=== PATIENT | female | born 1960 | race Caucasian/White ===

== ENCOUNTER 2016-10-06 12:49 | Emergency (ER) | payer OTHER ==
[~2016-10-06] VITALS: Ht 152.4 cm; Wt 88.0 kg
--- NOTE | 2016-10-06 13:20 | ED CARDIAC/CP/PALPITATIONS ---
History of Present Illness General Chief Complaint: Chest Pain Stated Complaint: CP WITH LEFT FLANK PAIN, LIGHTHEADED Source: patient Exam Limitations: no limitations Vital Signs & Intake/Output Vital Signs & Intake/Output Vital Signs Date Time Temp Pulse Resp B/P Pulse O2 O2 Flow FiO2 Ox Delivery Rate 10/06 1907 97.8 72 18 156/77 98 Room Air 10/06 1513 97.6 74 18 144/75 95 Room Air 10/06 1259 97.8 90 16 176/94 96 Room Air Allergies Coded Allergies: No Known Allergies (10/06/16) Reconcile Medications Atorvastatin Calcium 20 MG TABLET 1 TAB PO DAILY CHOLESTEROL (Reported) Fluticasone Furoate (Arnuity Ellipta) 100 MCG BLST.W.DEV 1 PUFF PO DAILY BREATHING PROBLEMS (Reported) Fluticasone Propionate (Flonase Allergy Relief) 50 MCG/ACTUATION SPRAY.SUSP 1 SPRAY SABAS DAILY ALLERGIES (Reported) Lansoprazole 30 MG CAPSULE.DR 1 CAP PO DAILY GI (Reported) Multivitamin (Daily Multiple Vitamin) 1 EACH TABLET 1 TAB PO DAILY SUPPLEMENT (Reported) Triage Note: PT STATES THAT SHE HAS HAD A PAIN UNDER HER L BREAST THAT RADIATES INTO HER BACK FOR THE PAST 2 HOURS. Triage Nurses Notes Reviewed? yes Onset: Abrupt Duration: hour(s): (2) Timing: recent history Quality/Severity: mild, tightness Radiation: shoulders, back Activities at Onset: none HPI: 55-year-old female with a history of hyperlipidemia comes into emergency room with complaints of left-sided rib/chest pain that began around 11 AM this morning. Patient reports that she was hung over this morning from drinking alcohol last night. Denies any shortness of breath. Some associated nausea and stomach upset. Denies any prior history of coronary disease or prior myocardial infarction. Nothing seems to make the symptoms better or worse. Pain is not severe or tearing. (KENDRA WALSH) Past History Travel History Traveled to [place] past 21 day No Medical History Any Pertinent Medical History? 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 No (KENDRA WALSH) Review of Systems Review of Systems Constitutional: Reports: no symptoms. EENTM: Reports: no symptoms. Respiratory: Reports: no symptoms. Cardiovascular: Reports: see HPI. GI: Reports: see HPI. Genitourinary: Reports: no symptoms. Musculoskeletal: Reports: see HPI. Skin: Reports: no symptoms. Neurological/Psychological: Reports: no symptoms. Hematologic/Endocrine: Reports: no symptoms. Immunologic/Allergic: Reports: no symptoms. All Other Systems: Reviewed and Negative (KENDRA WALSH) Physical Exam Physical Exam General Appearance: well developed/nourished, no apparent distress, alert Head: atraumatic, normal appearance Eyes: Bilateral: normal appearance. Ears, Nose, Throat: normal pharynx, normal ENT inspection Neck: normal inspection, full range of motion Respiratory: normal breath sounds, no respiratory distress Cardiovascular: regular rate/rhythm Gastrointestinal: normal bowel sounds, soft, non-tender Back: normal inspection Extremities: normal inspection, normal range of motion Neurologic/Psych: awake, alert, oriented x 3, normal gait, normal mood/affect Skin: intact, normal color Core Measures ACS in differential dx? No Severe Sepsis Present: No Septic Shock Present: No (KENDRA WALSH) Progress Differential Diagnosis: AMI, aortic dissection, atrial fibrillation, cholecystitis, costochondritis, hyperthyroid, hyperventilation, intracranial hemorrhage, musculoskeletal pain, myocarditis, pancreatitis, pericarditis, pneumonia, pneumothorax, pulmonary embolism, PUD/GERD, PVCs/PACs, respiratory failure, rib fracture, sepsis, unstable angina, V-fib/V-Tach, WPW syndrome Plan of Care: Orders Procedure Date/time Status TROPONIN LEVEL 10/06 1730 Complete EKG 10/06 1730 Active Telemetry/Powerhouse Engineer 10/06 1320 Active D-DIMER 10/06 1319 Complete URINALYSIS 10/06 1312 Complete TROPONIN LEVEL 10/06 1312 Complete COMPREHENSIVE METABOLIC PANEL 10/06 1312 Complete CBC WITHOUT DIFFERENTIAL 10/06 1312 Complete EKG 10/06 1251 Active Current Medications Sig/Taty Start time Last Medication Dose Stop Time Status Admin Ondansetron HCl 4 MG ONCE ONE 10/06 1330 CAN (Zofran) 10/06 1331 Pantoprazole Sodium 40 MG ONCE ONE 10/06 1330 CAN (Protonix) 10/06 1331 Sodium Chloride 1,000 ML BOLUS ONE 10/06 1330 CAN (Normal Saline 0.9%) 10/06 1429 Laboratory Tests 10/06/16 1730: Troponin I < 0.01 10/06/16 1446: Urinalysis LIGHT H, Urine Color YEL, Urine Clarity HAZY H, Urine pH 6.0, Ur Specific [place] 1.025, Urine Protein TRACE H, Urine Ketones TRACE H, Urine Nitrite NEG, Urine Bilirubin NEG, Urine Urobilinogen 0.2, Ur Leukocyte Esterase TRACE H, Ur Microscopic SEDIMENT EXAMINED, Urine RBC 1-3, Urine WBC 15-25 H, Ur Epithelial Cells MANY H, Urine Hemoglobin TRACE-INTACT, Urine Glucose NEG 10/06/16 1328: Anion Gap 11, Estimated GFR > 60, BUN/Creatinine Ratio 30.0 H, Glucose 96, Calcium 9.6, Total Bilirubin 0.6, AST 25, ALT 43, Alkaline Phosphatase 128 H, Troponin I < 0.01, Total Protein 8.0, Albumin 4.7, Globulin 3.3, Albumin/ Globulin Ratio 1.4, D-Dimer < 200, CBC w Diff NO MAN DIFF REQ, RBC 4.71, MCV 89.1, MCH 29.4, RDW 14.9 H, MPV 9.6, Gran % 72.3, Lymphocytes % 20.7, Monocytes % 4.9, Eosinophils % 1.7, Basophils % 0.4, Absolute Granulocytes 8.9 H, Absolute Lymphocytes 2.6, Absolute Monocytes 0.6, Absolute Eosinophils 0.2, Absolute Basophils 0.1, PUBS MCHC 33.0 Diagnostic Imaging: Viewed by Me: Radiology Read. Discussed w/RAD: Radiology Read. Radiology Impression: SERVICE DATE: 10/06/16 EXAM TYPE: RAD - XRY-CHEST XRAY, PA AND LATERAL EXAMINATION: XR CHEST CLINICAL INFORMATION: Chest pain. COMPARISON: None. TECHNIQUE: PA and lateral views of the chest were obtained. FINDINGS: No significant abnormality is noted involving the heart, lungs, mediastinum, bony thorax, or soft tissues. IMPRESSION: Unremarkable examination. Initial ED EKG: normal intervals, normal p-waves, normal QRS complex, normal sinus rhythm, rate (83) Prior EKG: changed (t wave inversion III) Comments: 10/06/2016 7:16:04 PM Patient clinically looks well. Patient is nontoxic-appearing. Very low suspicion for any type of acute cardiac event. Repeat EKG shows a T-wave inversion in lead 3. EKG otherwise normal and unchanged. This was discussed with Dr. cardozo as well as Dr. Wright. Second troponin is negative. Patient feels better and clinically looks well. Dr. Wright is not concerned that this is an acute finding as the patient may require further observation for ischemia. At this time patient will follow-up in the office this week with him. Patient was reevaluated multiple times in the emergency room. Patient never had any crushing chest pain. Pain was more located in the upper abdomen/left rib area. Likely related to a gastritis from drinking too much alcohol last night because symptoms improved after medications here. No concern or suspicion for dissection. D-dimer negative. Patient understands and agrees with plan of care. Shared decision making. Patient would rather go home. (LISSETTE PATE,KENDRA) Departure Departure Disposition: HOME OR SELF CARE Condition: Stable Clinical Impression Primary Impression: Chest pain, atypical Referrals: Va WRIGHT MD Additional Instructions: Follow-up with employee services manager this week. Return to the emergency room immediately if any other concerns worsening symptoms. Call number tomorrow. Please return to the emergency room immediately if any worsening symptoms. Please go over all results of today's visit with your primary care doctor. Contact your primary care doctor to let them know you were here in the emergency room. There may be nonspecific findings which may not be related to your visit today here in the emergency room but may require further evaluation and chronic monitoring by your primary care doctor. If you had a laceration today the chance of foreign body always remains. You should follow-up with your primary care doctor for recheck in 3-5 days for a wound check. If you had an x-ray done there is a chance that a fracture could have been missed on initial read and you should follow-up with your primary care doctor for repeat x-rays if symptoms persist. If your blood pressure was elevated here in the emergency room please have rechecked by her primary care doctor within the next 48 hours by your primary care doctor. If you were prescribed a narcotic here in the emergency room or any type of controlled substances you're not allowed to drive while taking this medication or operate any type of heavy machinery. Narcotics can make you feel lightheaded dizziness nausea and can cause constipation. You may need to shredder picker a stool softener. Thank you for choosing [facility] emergency room. Please return to the emergency room immediately if you have any other concerns worsening of symptoms. Departure Forms: Customer Survey General Discharge Information (KENDRA WALSH) PA/GERENTOLOGICAL PHYSIOTHERAPIST Co-Sign Statement Statement: ED Attending supervision documentation- [] I saw and evaluated the patient. I have also reviewed all the pertinent lab results and diagnostic results. I agree with the findings and the plan of care as documented in the PA's/GERENTOLOGICAL PHYSIOTHERAPIST's documentation. x I have reviewed the ED Record and agree with the PA's/GERENTOLOGICAL PHYSIOTHERAPIST's documentation. [] Additions or exceptions (if any) to the PAs/GERENTOLOGICAL PHYSIOTHERAPIST's note and plan are summarized below: [] (GUMARO CHANEY,ANKIT) Critical Care Note Critical Care Note Critical Care Time: 30-74 min (KENDRA WALSH)
[2016-10-06 13:46] LABS: ABSOLUTE BASOPHIL COUNT 0.1 /CUMM (0.0-0.2); ABSOLUTE EOSINOPHIL COUNT 0.2 /CUMM (0.0-0.7); ABSOLUTE GRANULOCYTE CT 8.9 /CUMM (1.4-6.5); ABSOLUTE LYMPH COUNT 2.6 /CUMM (1.2-3.4); ABSOLUTE MONOCYTE COUNT 0.6 /CUMM (0.10-0.60); BASOPHIL % 0.4 % (0.0-2.0); EOSINOPHIL % 1.7 % (0-5); GRANULOCYTE % 72.3 % (42.2-75.2); MEAN CORPUSCULAR HGB 29.4 PG (27.0-31.0); MEAN CORPUSCULAR VOLUME 89.1 FL (81.0-99.0); MEAN PLATELET VOLUME 9.6 FL (7.4-10.4); PLATELET COUNT 215 /CUMM (130-400); RBC DISTRIBUTION WIDTH 14.9 % (11.5-14.5); RED BLOOD CELL CT 4.71 /CUMM (4.20-5.40); WHITE BLOOD CELL COUNT 12.4 /CUMM (4.8-10.8)
[2016-10-06] MEDS ORDERED: LANSOPRAZOLE30 M2 PO (14:05)
[2016-10-06] MEDS ORDERED: ATORVASTATIN CA20 M1 PO (14:05)
[2016-10-06] MEDS ORDERED: ARNUITY ELLIP100 MCG PO (14:06)
[2016-10-06] MEDS ORDERED: DAILY MULTIPLE1 EACH PO (14:06)
[2016-10-06] MEDS ORDERED: FLONASE ALLERG9.9 ML NAS (14:07)
--- NOTE | 2016-10-06 14:50 | RADIOLOGY REPORT ---
EXAMINATION: XR CHEST CLINICAL INFORMATION: Chest pain. COMPARISON: None. TECHNIQUE: PA and lateral views of the chest were obtained. FINDINGS: No significant abnormality is noted involving the heart, lungs, mediastinum, bony thorax, or soft tissues. IMPRESSION: Unremarkable examination.
[2016-10-06 19:07] VITALS: BP 156/77
== END 2016-10-06 19:08 ==
LOC: ERH 12:49
PROVIDERS: Physician Assistant Medical
DX: R07.89 Other chest pain (principal)
CPT/HCPCS: 81001; 93005; 93010; J3101